=== PATIENT | female | born 1940 | race Caucasian/White ===

== ENCOUNTER → 2016-03-24 | Outpatient (REF) | payer MEDICARE ==
[~2016-03-24] MED LIST: HYDR-707 PO; TRAM-25 PO; TRM50T PO
[2016-03-24 10:37] LABS: BASOPHILS % (AUTO) 0 % (0-2); EOSINOPHILS # (AUTO) 0.2 10^3uL; EOSINOPHILS % (AUTO) 6 % (0-4); LYMPHOCYTES # (AUTO) 1.2 X10^3; MEAN CORPUSCULAR HEMOGLOBIN 30.3 PG (26.0-34.0); MEAN CORPUSCULAR HGB CONC 33.7 g/dL (31.0-37.0); MEAN CORPUSCULAR VOLUME 90 FL (80-100); MEAN PLATELET VOLUME 10.1 FL (6.0-9.5); MONOCYTES # (AUTO) 0.4 X10^3; MONOCYTES % (AUTO) 10 % (3-11); NEUTROPHILS # (AUTO) 1.8 X10^3; NEUTROPHILS % (AUTO) 51 % (51-67); PLATELET COUNT 166 10^3uL (150-450)
[2016-03-24 10:55] LABS: ALBUMIN 4.2 g/dL (3.4-5.0); ANION GAP 14.1 MEQ/L (3-15); CALCULATED IONIZED CALCIUM 4.2 mg/dL (3.8-4.6); TOTAL PROTEIN 7.2 g/dL (6.4-8.5)
[2016-03-24 11:04] LABS: BILIRUBIN,URINE Negative (Negative); CLARITY,URINE Clear; COLOR,URINE Yellow; GLUCOSE, URINE (UA) Negative (Negative); LEUKOCYTE ESTERASE ,URINE Negative (Negative); UROBILINOGEN,URINE 0.2 mg/dL (0.2-1.0)
[2016-03-24 11:34] LABS: URINE CENTRIFUGED VOLUME 12 mL
== END ==
LOC: LAB 10:12
PROVIDERS: ATTEND Family Medicine
DX: D50.8 Other iron deficiency anemias (principal); E11.9 Type 2 diabetes mellitus without complications; I34.0 Nonrheumatic mitral (valve) insufficiency; E78.4 Other hyperlipidemia
CPT/HCPCS: 80053; 80061; 81003; 81015; 83036; 84443; 85025